=== PATIENT | female | born 1955 | race Caucasian/White ===

== ENCOUNTER 2017-03-26 13:13 | Emergency (ER) | payer BC ==
[~2017-03-26 13:13] MED LIST: ASAB PO; C5; CALTRA600D PO; CENTRUM PO; CENTRUM TAB1 TAB PO; CYANO1000T PO; LEVOTHYROXIN100 MCG PO; MEVACOR40 MG PO; MONODOX50 MG PO; MULTIPLE VIT PO; OSTEO BI-FLEX1 EACH PO; OXYCOD PO; PCET PO; PRILO PO; PRIN10 PO; VITAMIN B-121000 MC1 SL; VITAMIN D1000 UNI1 PO; VITAMIN D2000 UNIT PO; VIVELLE SY0.05 MG/24 TOP; XALAT OPH; ZANTAC15 MG/ML PO; ZESTORETIC1 TAB PO
== END 2017-03-26 17:00 | disposition home or self-care (01) ==
LOC: ER 13:13
PROC: 2W3DX1Z Immobilization of Left Lower Arm using Splint (ICD-10-PCS; principal; 2017-03-26)
DX: S63.502A Unspecified sprain of left wrist, initial encounter (principal); M25.552 Pain in left hip; I10 Essential (primary) hypertension; Z88.0 Allergy status to penicillin; Z88.6 Allergy status to analgesic agent; Z79.899 Other long term (current) drug therapy; W22.8XXA Striking against or struck by other objects, initial encounter
CPT/HCPCS: 73100-LT; 73502-LT; 73590-RT; 99284